=== PATIENT | female | born 1925 | race African-American/Black ===

== ENCOUNTER 2017-01-12 16:52 | Emergency (ER) | payer MEDICARE, OTHER ==
[~2017-01-12] VITALS: Ht 152.4 cm; Wt 54.4 kg
[~2017-01-12 16:52] MED LIST: AMIODARONE HCL100 MG ORAL; AMIODARONE HCL200 MG ORAL; AMLODIPINE BESY10 MG ORAL; ASPIRIN81 M3 PO; ATORVASTATIN CA20 MG ORAL; BACTRIM DS TAB1 EAC1 ORAL; CEPHALEXIN500 MG ORAL; COLACE100 MG ORAL; COUMADIN2.5 MG ORAL; DOCUSATE SODIU100 M2 ORAL; FERROUS SULFAT325 MG ORAL; GLIPIZIDE5 MG ORAL; HUMALOG100 UNIT/3 SUBQ; JANUVIA50 MG ORAL; LOSARTAN POTASS50 MG ORAL; MIRALAX119 GM PO; MIRALAX17 G2 ORAL; MULTI VITAMIN1 EACH ORAL; NITROFURANTOIN100 MG PO; NORVASC2.5 MG ORAL; PROTONIX40 MG ORAL; RISPERIDONE0.5 MG PO; RISPERIDONE1 MG/1 M1 PO; TYLENOL650 MG/20. ORAL; VIBRAMYCIN100 MG ORAL; XALATAN2.5 ML BOTH EYES; ZINC SULFATE220 M2 ORAL; ZYPREXA2.5 MG ORAL
[2017-01-12 17:01] VITALS: BP 113/61
[2017-01-12 17:08] VITALS: BP 113/61
--- NOTE | 2017-01-12 17:09 | Emergency Room Report ---
History of Present Illness General Chief Complaint: Abnormal Labs Source: Patient Present Illness HPI Patient is an 89-year-old female sent in by shelter for possible deep venous thrombosis. The patient was noted to have recent duplex study which was reportedly positive for DVT. The patient was noted to have no complaints of leg pain or swelling at this time. Allergies: Coded Allergies: LORAZEPAM (Unverified Allergy, Unknown, 01/12/17) OLANZAPINE (Unverified Allergy, Unknown, 10/19/15) Patient History Past Medical History: none Reviewed Nursing Documentation: PMH: Agreed, PSxH: Agreed Nursing Documentation-PMH Hx Cardiac Problems: Yes - cardiomegaly Hx Hypertension: Yes Hx Asthma: No - GLAUCOMA, HYPERLIPIDEMIA Hx COPD: Yes Hx Diabetes: Yes Hx Cancer: No Hx Gastrointestinal Problems: No Hx Neurological Problems: Yes - AMS Review of Systems All Other Systems: negative except mentioned in HPI Physical Exam Vital Signs Date Time Temp Pulse Resp B/P Pulse Ox O2 Delivery O2 Flow Rate FiO2 01/12/17 16:39 99.0 86 16 113/61 96 Sp02 EP Interpretation: reviewed, normal General Appearance: normal inspection, well appearing, no apparent distress, alert Head: atraumatic ENT: normal ENT inspection, hearing grossly normal, normal voice Neck: normal inspection, full range of motion, supple, no bony tend Respiratory: normal inspection, lungs clear, normal breath sounds, no respiratory distress, no retraction, no wheezing Cardiovascular #1: regular rate, rhythm, no edema Gastrointestinal: normal inspection, normal bowel sounds, non tender, soft, no guarding, no hernia Genitourinary: no CVA tenderness Musculoskeletal: normal inspection, back normal, normal range of motion Neurologic: normal inspection, alert, responsive, valve lapper III-XII nml as tested, speech normal Psychiatric: normal inspection, judgement/insight normal, mood/affect normal Skin: normal inspection, normal color, no rash Medical Decision Making Diagnostic Impression: Primary Impression: Arthralgia ER Course The patient presented for possible deep venous thrombosis. The patient's previous studies were reviewed and are noted to have no evidence of deep venous thrombosis. The patient was noted to have some chronic arterial insufficiency. The patient's extremities appear to be warm and well-perfused. Patient does not appear to require any inpatient treatment at this time. The patient will be discharged back to her facility. She is to follow up with primary care physician in the next one to 2 days. Last Vital Signs Date Time Temp Pulse Resp B/P Pulse Ox O2 Delivery O2 Flow Rate FiO2 01/12/17 16:39 99.0 86 16 113/61 96 Status: improved Disposition: [facility] Condition: Stable Hernan Quiros Jan 12, 2017 17:09
== END 2017-01-12 18:38 ==
LOC: EDBD 16:52 → EMR 17:47
DX: I77.1 Stricture of artery (principal); M25.50 Pain in unspecified joint; I10 Essential (primary) hypertension; E11.9 Type 2 diabetes mellitus without complications; J44.9 Chronic obstructive pulmonary disease, unspecified; Z88.8 Allergy status to other drugs, medicaments and biological substances
CPT/HCPCS: 99283